=== PATIENT | female | born 1970 | race Caucasian/White ===

== ENCOUNTER 2019-09-10 18:28 | Emergency (ER) | payer SELFPAY ==
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
[2019-09-10] MEDS ORDERED: TYLENOL 325 MG PO STA (20:20)
[2019-09-10] MEDS ORDERED: TYLENOL 325 MG ONE (20:21)
[2019-09-10] MEDS ORDERED: NORCO 5/325 MG PO ONE (20:49)
[2019-09-10] MEDS ORDERED: NORCO 5/325 MG ONE (20:51)
[2019-09-10 21:05] VITALS: BP 112/67; PULSE 74; O2SAT 98
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
== END 2019-09-10 21:06 | disposition home or self-care (01) ==
LOC: ED 18:28
DX: T14.8XXA Other injury of unspecified body region, initial encounter (principal); M79.642 Pain in left hand; M25.50 Pain in unspecified joint; M25.532 Pain in left wrist; M54.6 Pain in thoracic spine; V59.40XA Driver of pick-up truck or van injured in collision with unspecified motor vehicles in traffic accident, initial encounter
CPT/HCPCS: 72072; 73110; 73130; 99284; L3908; A9270-GY

== ENCOUNTER 2020-10-03 22:41 | Emergency (ER) | payer OTHER ==
[2020-10-03] MEDS ORDERED: Pepcid 20 MG VIAL IV ONE ×2 (23:10→23:11)
[2020-10-03] MEDS ORDERED: BENADRYL 50 MG/ML IV ONE (23:10)
[2020-10-03] MEDS ORDERED: solu-MEDROL 125 MG, Sterile H2O 10 ml 2 ML IV ONE ×2 (23:10)
[2020-10-03] MEDS ORDERED: solu-MEDROL ONE (23:11)
[2020-10-03] MEDS ORDERED: BENADRYL 50 MG/ML ONE (23:11)
--- NOTE | 2020-10-04 00:14 | ERPHSYRPT ---
- History of Present Illness Time Seen by Provider: 10/03/20 22:50 Source: patient Exam Limitations: no limitations Patient Subjective Stated Complaint: pt states after drinking daily's [place] mama she began having ithcing in her throat and felling like her tongue was thihomero dc difficulty breathing or swallowing Triage Nursing Assessment: pt alert and oriented, answers questions approp. pt ambulatory with steady gait noted. respirations nonlabored with lungs cta. respirations nonlabored with lungs cta. Physician History: Patient is a 50-year-old white female who presents with an allergic reaction. She noted the onset of swelling of her tongue and difficulty breathing and hives when she was fdc done with a [employer] dicksona frozen cocktail. She did take 25 of Benadryl at home. She also reports that in the recent weeks she has had allergic reactions to other things like shrimp and gluten-containing foods. These are new to her. Timing/Duration: today Severity: moderate Modifying Factors: Improves With: eating Associated Symptoms: shortness of breath Allergies/Adverse Reactions: codeine Allergy (Severe, Verified 10/03/20 23:09) Difficulty Breathing morphine Allergy (Severe, Verified 10/03/20 23:09) Difficulty Breathing Penicillins Allergy (Intermediate, Verified 10/03/20 23:09) Sulfa (Sulfonamide Antibiotics) Allergy (Intermediate, Verified 10/03/20 23:09) Rash Hx Tetanus, Diphtheria Vaccination/Date Given: Yes Hx Influenza Vaccination/Date Given: Yes Hx Pneumococcal Vaccination/Date Given: No Immunizations Up to Date: Yes Travel Risk - International Travel Have you traveled outside of the country in past 3 weeks: No - Coronavirus Screening Are you exhibiting any of the following symptoms?: No Close contact with a COVID-19 positive Pt in past 14-21 Days: No - Vaccine Status Have you recieved a Covid-19 vaccination: Yes 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 Practice Manager: Azub[employer] - Vaccination Dates Date of 2cond Vaccination (if applicable): april 2020 - Review of Systems Constitutional: No Fever, No Chills Eyes: No Symptoms Ears, Nose, & Throat: No Symptoms, Mouth Swelling, Throat Swelling Respiratory: Wheezing, No Cough, No Dyspnea Cardiac: No Chest Pain, No Edema, No Syncope Abdominal/Gastrointestinal: No Abdominal Pain, No Nausea, No Vomiting, No Diarrhea Genitourinary Symptoms: No Dysuria Musculoskeletal: No Back Pain, No Neck Pain Skin: No Rash Neurological: No Dizziness, No Focal Weakness, No Sensory Changes Psychological: No Symptoms Endocrine: No Symptoms All Other Systems: Reviewed and Negative - Past Medical History Pertinent Past Medical History: Yes Neurological History: No Pertinent History ENT History: Glaucoma Cardiac History: No Pertinent History Respiratory History: No Pertinent History Endocrine Medical History: No Pertinent History Musculoskeletal History: No Pertinent History GI Medical History: Crohns Disease History: No Pertinent History Psycho-Social History: No Pertinent History Female Reproductive Disorders: No Pertinent History - Past Surgical History Past Surgical History: Yes Neuro Surgical History: No Pertinent History Cardiac: No Pertinent History Respiratory: No Pertinent History Gastrointestinal: Appendectomy, Cholecystectomy Genitourinary: No Pertinent History Musculoskeletal: No Pertinent History Female Surgical History: No Pertinent History Other Surgical History: uterine ablation, mult colon resection d/t crohns - Social History Smoking Status: Former smoker Exposure to second hand smoke: No Drug Use: none Patient Lives Alone: No - Female History Hx Last Menstrual Period: post - Nursing Vital Signs Nursing Vital Signs: Initial Vital Signs Temperature 97.3 F 10/03/20 22:55 Pulse Rate 89 10/03/20 22:55 Respiratory Rate 18 10/03/20 22:55 Blood Pressure 140/80 10/03/20 22:55 O2 Sat by Pulse Oximetry 97 10/03/20 22:55 Pain Scale Pain Intensity 0 - Physical Exam General Appearance: mild distress Eye Exam: PERRL/EOMI, eyes nml inspection Ears, Nose, Throat Exam: other (Appear slightly swollen oropharynx is actually clear) Neck Exam: normal inspection, non-tender, supple, full range of motion Respiratory Exam: airway intact, wheezing Cardiovascular Exam: regular rate/rhythm, normal heart sounds, normal peripheral pulses Gastrointestinal/Abdomen Exam: soft, normal bowel sounds, No tenderness, No mass Back Exam: normal inspection, normal range of motion, No CVA tenderness, No vertebral tenderness Extremity Exam: normal inspection, normal range of motion, pelvis stable Neurologic Exam: alert, oriented x 3, cooperative, normal mood/affect, nml cerebellar function, nml station & gait, sensation nml, No motor deficits Skin Exam: normal color, warm, dry, No rash Lymphatic Exam: No adenopathy SpO2 Interpretation: normal SpO2: 97 O2 Delivery: Room Air - Course Nursing assessment & vital signs reviewed: Yes Ordered Tests: Medication Summary Discontinued Medications Generic Name Dose Route Start Last Admin Trade Name Ivis PRMauricio Reason Stop Dose Admin Methylprednisolone Sodium 0 mg 10/03/20 23:10 10/03/20 23:18 Succinate 125 mg/ Sterile IV 10/03/20 23:11 125 mg Water 2 ml STAT ONE Administration Diphenhydramine HCl 25 mg 10/03/20 23:10 10/03/20 23:17 Benadryl 50 Mg/Ml IV 10/03/20 23:11 25 mg STAT ONE Administration Diphenhydramine HCl Confirm 10/03/20 23:11 Benadryl 50 Mg/Ml Administered 10/03/20 23:12 Dose 50 mg .ROUTE .STK-MED ONE Famotidine 20 mg 10/03/20 23:10 10/03/20 23:17 Pepcid 20 Mg Vial IV 10/03/20 23:11 20 mg STAT ONE Administration Famotidine Confirm 10/03/20 23:11 Pepcid 20 Mg Vial Administered 10/03/20 23:12 Dose 20 mg IV .STK-MED ONE Methylprednisolone Sodium Succinate Confirm 10/03/20 23:11 Solu-Medrol Administered 10/03/20 23:12 Dose 125 mg .ROUTE .STK-MED ONE - Progress Progress: improved - Departure Departure Disposition: Home Clinical Impression: Allergic reaction Condition: Stable Critical Care Time: No Referrals: DOCTOR,NO FAMILY [Primary Care Provider] - Instructions: Hives (DC) Prescriptions: Prednisone 10 mg [Deltasone 10 mg] 10 mg PO TID #12 tablet
[2020-10-04 00:23] VITALS: BP 130/72; PULSE 73; O2SAT 98
== END 2020-10-04 00:34 | disposition home or self-care (01) ==
LOC: ED 22:41
DX: T78.40XA Allergy, unspecified, initial encounter (principal)
CPT/HCPCS: 96374; 96375; 99283; J1200; J2930

== ENCOUNTER 2022-03-09 21:06 | Emergency (ER) | payer OTHER ==
--- NOTE | 2022-03-09 21:11 | ERPHSYRPT ---
- History of Present Illness Time Seen by Provider: 03/09/22 21:11 Source: patient Exam Limitations: no limitations Physician History: This is a 51-year-old white female patient of nurse practitioner Joshua who presents with what she feels is a medication reaction to topical conjugated estrogens. Patient placed the estrogen vaginally as prescribed at approximately 8 PM prior to arrival to the emergency department at 9:30 PM. She noticed tightening of the throat and some perioral numbness within 30 minutes of placement of this new medication for her. She did not sense any shortness of breath chest pain. She has not had any nausea vomiting or diarrhea symptoms. She did attempt to rinse the medication out and off of her but does not feel she had all of it removed. Patient did not take any medication prior to arrival. Patient had the sensation of a dry mouth Timing/Duration: today Severity: mild Possible Causes: medications Associated Symptoms: tingling (The oral and in her throat), No difficulty breathing, No rash Allergies/Adverse Reactions: codeine Allergy (Severe, Verified 10/03/20 23:09) Difficulty Breathing estrogens, conjugated [From Premarin] Allergy (Severe, Verified 03/09/22 21:24) Difficulty Swallowing morphine Allergy (Severe, Verified 10/03/20 23:09) Difficulty Breathing Penicillins Allergy (Intermediate, Verified 10/03/20 23:09) Sulfa (Sulfonamide Antibiotics) Allergy (Intermediate, Verified 10/03/20 23:09) Rash Home Medications: Adalimumab [Humira] 40 mg SQ UD 03/09/22 [History] Bimatoprost 0.01% [Lumigan 0.01% 2.5 ml] 2 drops HS 03/09/22 [History] Brimonidine Tartrate/Timolol [Combigan 0.2%-0.5% Eye Drops] 2 drops HS 03/09/22 [History] Cyanocobalamin (Vitamin B-12) [B-12] 1,000 mcg SQ UD 03/09/22 [History] Cyclobenzaprine HCl 10 mg [Cyclobenzaprine 10 MG] 10 mg PO TID PRN 03/09/22 [History] Potassium Chloride 20 meq PO DAILY PRN PRN 03/09/22 [History] Semaglutide [Ozempic] 1 mg SQ WEEKLY 03/09/22 [History] Hx Tetanus, Diphtheria Vaccination/Date Given: Yes Hx Influenza Vaccination/Date Given: Yes Hx Pneumococcal Vaccination/Date Given: No Travel Risk - International Travel Have you traveled outside of the country in past 3 weeks: No - Coronavirus Screening Are you exhibiting any of the following symptoms?: No Close contact with a COVID-19 positive Pt in past 14-21 Days: No - Vaccine Status Have you recieved a Covid-19 vaccination: Yes 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 Throat numbness) Respiratory: No Symptoms Cardiac: No Symptoms Abdominal/Gastrointestinal: No Symptoms Genitourinary Symptoms: No Symptoms Musculoskeletal: No Symptoms Skin: No Symptoms Neurological: No Symptoms Psychological: No Symptoms Endocrine: No Symptoms Hematologic/Lymphatic: No Symptoms Immunological/Allergic: No Symptoms All Other Systems: Reviewed and Negative - Past Medical History Pertinent Past Medical History: Yes Neurological History: No Pertinent History ENT History: Glaucoma Cardiac History: No Pertinent History Respiratory History: No Pertinent History Endocrine Medical History: No Pertinent History Musculoskeletal History: No Pertinent History GI Medical History: Crohns Disease History: No Pertinent History Psycho-Social History: No Pertinent History Female Reproductive Disorders: No Pertinent History - Past Surgical History Past Surgical History: Yes Neuro Surgical History: No Pertinent History Cardiac: No Pertinent History Respiratory: No Pertinent History Gastrointestinal: Appendectomy, Cholecystectomy Genitourinary: No Pertinent History Musculoskeletal: No Pertinent History Female Surgical History: No Pertinent History Other Surgical History: uterine ablation, mult colon resection d/t crohns - Social History Smoking Status: Former smoker Exposure to second hand smoke: No Drug Use: none Patient Lives Alone: No - Nursing Vital Signs Nursing Vital Signs: Initial Vital Signs Temperature 97.6 F 03/09/22 21:14 Pulse Rate 85 03/09/22 21:14 Respiratory Rate 17 03/09/22 21:14 Blood Pressure 132/87 03/09/22 21:14 O2 Sat by Pulse Oximetry 97 03/09/22 21:14 Pain Scale Pain Intensity 0 - Physical Exam General Appearance: no apparent distress, alert, anxiety Eye Exam: PERRL/EOMI, eyes nml inspection Ears, Nose, Throat Exam: dry mucous membranes Neck Exam: normal inspection, non-tender, supple, full range of motion Respiratory Exam: normal breath sounds, lungs clear, No chest tenderness, No respiratory distress, No wheezing, No stridor Cardiovascular Exam: regular rate/rhythm, normal heart sounds, normal peripheral pulses Gastrointestinal/Abdomen Exam: soft, normal bowel sounds, No tenderness Pelvic Exam: not done Rectal Exam: not done Back Exam: normal inspection, normal range of motion, No CVA tenderness, No vertebral tenderness Extremity Exam: normal inspection, normal range of motion, pelvis stable Neurologic Exam: alert, oriented x 3, cooperative, museum director II-XII nml as tested, normal mood/affect, nml cerebellar function, nml station & gait, sensation nml Skin Exam: normal color, warm, dry, No rash Lymphatic Exam: No adenopathy SpO2 Interpretation: normal O2 Delivery: Room Air - Course Nursing assessment & vital signs reviewed: Yes Ordered Tests: Medication Summary Discontinued Medications Generic Name Dose Route Start Last Admin Trade Name Jereq PRN Reason Stop Dose Admin Diphenhydramine HCl 50 mg 03/09/22 21:43 03/09/22 21:50 Diphenhydramine Hcl 25 Mg Capsule PO 03/09/22 21:44 50 mg STAT ONE Administration Diphenhydramine HCl Confirm 03/09/22 21:48 Diphenhydramine Hcl 25 Mg Capsule Administered 03/09/22 21:49 Dose 50 mg .ROUTE .STK-MED ONE Famotidine 40 mg 03/09/22 21:43 03/09/22 21:50 Famotidine 20 Mg Tablet PO 03/09/22 21:44 40 mg STAT ONE Administration Famotidine Confirm 03/09/22 21:47 Famotidine 20 Mg Tablet Administered 03/09/22 21:48 Dose 40 mg .ROUTE .STK-MED ONE Prednisone 20 mg 03/09/22 21:44 03/09/22 21:50 Prednisone 20 Mg Tablet PO 03/09/22 21:45 20 mg STAT ONE Administration Prednisone Confirm 03/09/22 21:48 Prednisone 20 Mg Tablet Administered 03/09/22 21:49 Dose 20 mg .ROUTE .STK-MED ONE - Progress Progress: improved Counseled pt/family regarding: diagnosis, need for follow-up, rad results - Departure Departure Disposition: Home Clinical Impression: Medication adverse effect Condition: Stable Critical Care Time: No Referrals: LINDA LEWIS NP [Primary Care Provider] - Follow up/PCP as directed Additional Instructions: Stop the new medication. Contact Jo [facility] nurse practitioner tomorrow morning to determine what new medication or new/different delivery system to provide the same medication for you. Take Benadryl 25 mg orally 3 times a day for the next 4 days. Take your other medications as prescribed. Prescriptions: Prednisone 10 mg [Deltasone 10 mg] 10 mg PO TID #12 tablet Famotidine 20 mg [Pepcid 20 MG] 20 mg PO DAILY #7 tablet
[2022-03-09] MEDS ORDERED: Pepcid 20 MG PO ONE (21:43)
[2022-03-09] MEDS ORDERED: BENADRYL 25 MG CAPSULE PO ONE (21:43)
[2022-03-09] MEDS ORDERED: DELTASONE 20 MG PO ONE (21:44)
[2022-03-09] MEDS ORDERED: Pepcid 20 MG ONE (21:47)
[2022-03-09] MEDS ORDERED: DELTASONE 20 MG ONE (21:48)
[2022-03-09] MEDS ORDERED: BENADRYL 25 MG CAPSULE ONE (21:48)
[2022-03-09 22:32] VITALS: BP 119/81; PULSE 72; O2SAT 98
== END 2022-03-09 22:43 | disposition home or self-care (01) ==
LOC: ED 21:06
DX: R13.10 Dysphagia, unspecified (principal); T38.5X5A Adverse effect of other estrogens and progestogens, initial encounter; R20.0 Anesthesia of skin; R68.2 Dry mouth, unspecified; Z79.85 Long-term (current) use of injectable non-insulin antidiabetic drugs; Z79.52 Long term (current) use of systemic steroids; Z79.899 Other long term (current) drug therapy
CPT/HCPCS: 99282; A9270-GY

== ENCOUNTER 2022-08-28 06:08 | Emergency (ER) | payer OTHER ==
--- NOTE | 2022-08-28 06:38 | ERPHSYRPT ---
- History of Present Illness Historian: patient, family Exam Limitations: no limitations Timing/Duration: today Activities at Onset: none Quality: cramping, sharpness, stabbing Abdominal Pain Onset Location: RUQ Pain Radiation: other (right to mid and left) Severity of Pain-Max: severe Severity of Pain-Current: severe Modifying Factors: Improves With: nothing Associated Symptoms: nausea Previous symptoms: recently treated, other (like prior crohns only more) Hx Tetanus, Diphtheria Vaccination/Date Given: Yes Hx Influenza Vaccination/Date Given: Yes Hx Pneumococcal Vaccination/Date Given: No <IVELISSE ARRIAZA - Last Filed: 08/28/22 06:44> <LAURA FLORES - Last Filed: 08/28/22 09:41> - History of Present Illness Time Seen by Provider: 08/28/22 06:33 Physician History: pt has a Hx of Crohns Dx with several previous resections now maintained on Humira, and feels this is an episode. She was scheduled for a CT with contrast tomorrow for a suspicious abd mass, but developed this pain today. No hx of trauma. She is allergic to morphine. Abd is tender at Right to mid with rebound. family serves as an independent source for the Hx. Discussed risks/benefits of testing including IV COntrast CT, CBC,CMP, Lactate, HCG, Lipase Amylase, UA, as well as Tx with IVF and droperidol for pain and pt wishes to proceed. Results later discussed. PMHx includes removal of GB and Appe , as well as recurring renal stones. (IVELISSE ARRIAZA) Allergies/Adverse Reactions: codeine Allergy (Severe, Verified 08/28/22 06:17) Difficulty Breathing estrogens, conjugated [From Premarin] Allergy (Severe, Verified 08/28/22 06:17) Difficulty Swallowing morphine Allergy (Severe, Verified 08/28/22 06:17) Difficulty Breathing Penicillins Allergy (Intermediate, Verified 08/28/22 06:17) Sulfa (Sulfonamide Antibiotics) Allergy (Intermediate, Verified 08/28/22 06:17) Rash coconut Allergy (Verified 08/28/22 06:17) Anaphylactic Reaction Home Medications: Adalimumab [Humira] 40 mg SQ UD 03/09/22 [History] Bimatoprost 0.01% [Lumigan 0.01% 2.5 ml] 2 drops HS 03/09/22 [History] Brimonidine Tartrate/Timolol [Combigan 0.2%-0.5% Eye Drops] 2 drops HS 03/09/22 [History] Cyanocobalamin (Vitamin B-12) [B-12] 1,000 mcg SQ UD 03/09/22 [History] Cyclobenzaprine HCl 10 mg [Cyclobenzaprine 10 MG] 10 mg PO TID PRN 3 [History] Potassium Chloride 20 meq PO DAILY PRN PRN 03/09/22 [History] Alprazolam [Xanax] 0.5 mg PO DAILY PRN 08/28/22 [History] Cholecalciferol (Vitamin D3) [Vitamin D] 2,000 unit PO DAILY 08/28/22 [History] Ergocalciferol (Vitamin D2) [Vitamin D2] 50,000 unit PO Q7D 08/28/22 [History] Travel Risk - Vaccine Status Have you recieved a Covid-19 vaccination: Yes 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[employer] 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[employer] - Vaccination Dates Date of 2cond Vaccination (if applicable): april 2020 <IVELISSE ARRIAZA - Last Filed: 08/28/22 06:44> - Review of Systems Constitutional: No Fever, No Chills Eyes: No Symptoms Ears, Nose, & Throat: No Symptoms Respiratory: No Cough, No Dyspnea Cardiac: No Chest Pain, No Edema, No Syncope Abdominal/Gastrointestinal: Abdominal Pain, Nausea, No Diarrhea Genitourinary Symptoms: No Dysuria Musculoskeletal: No Back Pain, No Neck Pain Skin: No Symptoms, No Rash Neurological: No Dizziness, No Focal Weakness, No Sensory Changes Psychological: No Symptoms Endocrine: No Symptoms Hematologic/Lymphatic: No Symptoms Immunological/Allergic: No Symptoms All Other Systems: Reviewed and Negative <IVELISSE ARRIAZA - Last Filed: 08/28/22 06:44> - Past Medical History Pertinent Past Medical History: Yes Neurological History: No Pertinent History ENT History: Glaucoma Cardiac History: No Pertinent History Respiratory History: No Pertinent History Endocrine Medical History: No Pertinent History Musculoskeletal History: No Pertinent History GI Medical History: Crohns Disease History: No Pertinent History Psycho-Social History: No Pertinent History Female Reproductive Disorders: No Pertinent History - Past Surgical History Past Surgical History: Yes Neuro Surgical History: No Pertinent History Cardiac: No Pertinent History Respiratory: No Pertinent History Gastrointestinal: Appendectomy, Cholecystectomy Genitourinary: No Pertinent History Musculoskeletal: No Pertinent History Female Surgical History: No Pertinent History Other Surgical History: uterine ablation, mult colon resection d/t crohns - Social History Smoking Status: Former smoker Exposure to second hand smoke: No Drug Use: none Patient Lives Alone: No <IVELISSE ARRIAZA - Last Filed: 08/28/22 06:44> - Physical Exam General Appearance: moderate distress, alert Eye Exam: PERRL/EOMI, eyes nml inspection Ears, Nose, Throat Exam: normal ENT inspection, pharynx normal, moist mucous membranes Neck Exam: normal inspection, non-tender, supple, full range of motion Respiratory Exam: normal breath sounds, lungs clear, No respiratory distress Cardiovascular Exam: regular rate/rhythm, normal heart sounds Gastrointestinal/Abdomen Exam: soft, tenderness, guarding, rebound Pelvic Exam: deferred Rectal Exam: deferred Back Exam: normal inspection, normal range of motion, No CVA tenderness, No vertebral tenderness Extremity Exam: normal inspection, normal range of motion, pelvis stable Neurologic Exam: alert, oriented x 3, cooperative, normal mood/affect, nml cerebellar function, sensation nml, No motor deficits Skin Exam: normal color, warm, dry SpO2 Interpretation: normal SpO2: 96 O2 Delivery: Room Air <APPLE ARRIAZAH MICHELLE - Last Filed: 08/28/22 06:44> - Nursing Vital Signs Nursing Vital Signs: Initial Vital Signs Pulse Rate 71 08/28/22 06:18 Blood Pressure 179/84 08/28/22 06:18 O2 Sat by Pulse Oximetry 95 08/28/22 06:18 Pain Scale Pain Intensity 10 - Course Nursing assessment & vital signs reviewed: Yes <APPLE ARRIAZAH MICHELLE - Last Filed: 08/28/22 06:44> - CT Exams Abdomen/Pelvis CT Interpretation: Tele-radiologist Report, Other (terminal ileum shows thick en hancing vargas with surrounding fat stranding and minimal free fluid. There is an associated stricture and upstream small bowel dilation concerning for active Crohn's disease. Patient also has bilateral nonobstructing renal calculi.) <LAURA FLORES - Last Filed: 08/28/22 09:41> Ordered Tests: Active Orders 24 hr Category Date Time Status IV Insertion STAT Care 08/28/22 06:44 Active ABDOMEN AND PELVIS W CONTRAST [CT] Stat Exams 08/28/22 06:44 Completed AMYLASE Stat Lab 08/28/22 06:40 Completed CBC W DIFF Stat Lab 08/28/22 06:40 Completed CMP Stat Lab 08/28/22 06:40 Completed HCG QUALITATIVE, SERUM Stat Lab 08/28/22 06:40 Completed LIPASE Stat Lab 08/28/22 06:40 Completed Lactic Acid Stat Lab 08/28/22 06:44 Completed UA W/RFX UR CULTURE Stat Lab 08/28/22 06:50 Ordered Medication Summary Discontinued Medications Generic Name Dose Route Start Last Admin Trade Name Freq PRN Reason Stop Dose Admin Methylprednisolone Sodium 0 mg 08/28/22 07:34 08/28/22 07:38 Succinate 125 mg/ Sterile IV 08/28/22 07:35 125 mg Water 2 ml STAT ONE Administration Droperidol 1.25 mg 08/28/22 06:44 08/28/22 07:00 Droperidol 5 Mg/2 Ml Vial IV 08/28/22 06:45 1.25 mg STAT ONE Administration Droperidol Confirm 08/28/22 06:53 Droperidol 5 Mg/2 Ml Vial Administered 08/28/22 06:54 Dose 5 mg .ROUTE .STK-MED ONE Famotidine 20 mg 08/28/22 06:44 08/28/22 06:59 Famotidine 20 Mg/1 Vial IV 08/28/22 06:45 20 mg STAT ONE Administration Famotidine Confirm 08/28/22 06:53 Famotidine 20 Mg/1 Vial Administered 08/28/22 06:54 Dose 20 mg IV .STK-MED ONE Hydromorphone HCl 0.5 mg 08/28/22 07:33 08/28/22 07:42 Hydromorphone 1 Mg/1ml Inj IV 08/28/22 07:34 0.5 mg STAT ONE Administration Hydromorphone HCl Confirm 08/28/22 07:36 Hydromorphone 1 Mg/1ml Inj Administered 08/28/22 07:37 Dose 1 mg .ROUTE .STK-MED ONE Sodium Chloride 1,000 mls @ 999 mls/hr 08/28/22 06:44 08/28/22 08:06 Sodium Chloride 0.9% 1000 Ml IV 08/28/22 07:44 Infused .Q1H1M STA Infusion Sodium Chloride Confirm 08/28/22 06:54 Sodium Chloride 0.9% 1000 Ml Administered 08/28/22 06:55 Dose 1,000 mls @ ud .ROUTE .STK-MED ONE Methylprednisolone Sodium Succinate Confirm 08/28/22 07:36 Methylprednis Sod Succ 125 Mg/2 Ml Vial Administered 08/28/22 07:37 Dose 125 mg .ROUTE .STK-MED ONE Ondansetron HCl 4 mg 08/28/22 06:44 08/28/22 06:57 Ondansetron Hcl 4 Mg/2 Ml Vial IV 08/28/22 06:45 4 mg STAT ONE Administration Ondansetron HCl Confirm 08/28/22 06:53 Ondansetron Hcl 4 Mg/2 Ml Vial Administered 08/28/22 06:54 Dose 4 mg .ROUTE .STK-MED ONE Pantoprazole Sodium 40 mg 08/28/22 06:44 08/28/22 07:00 Pantoprazole 40 Mg Vial IV 08/28/22 06:45 40 mg STAT ONE Administration Pantoprazole Sodium Confirm 08/28/22 06:54 Pantoprazole 40 Mg Vial Administered 08/28/22 06:55 Dose 40 mg IV .STK-MED ONE Sterile Water Confirm 08/28/22 07:36 Water For Injection,Sterile 10 Ml Vial Administered 08/28/22 07:37 Dose 10 ml IJ .STK-MED ONE Lab/Rad Data: Laboratory Result Diagrams 08/28/22 06:40 08/28/22 06:40 Laboratory Results 08/28/22 08/28/22 08/28/22 Range/Units 06:44 06:40 06:40 WBC (4.0-10.5) x10^3/uL RBC (4.1-5.4) x10^6/uL Hgb (12.0-16.0) g/dL Hct (35-47) % MCV (78-100) fL MCH (26-32) pg MCHC (32-36) g/dL RDW (11.5-14.0) % Plt Count (150-450) x10^3/uL MPV (7.5-11.0) fL Gran % (36.0-66.0) % Immature Gran % (Auto) (0.00-0.4) % Nucleat RBC Rel Count (0.00-0.1) % Eos # (Auto) (0-0.5) x10^3/uL Immature Gran # (Auto) (0.00-0.03) x10^3u/L Absolute Lymphs (auto) (1.0-4.6) x10^3/uL Absolute Monos (auto) (0.0-1.3) x10^3/uL Absolute Nucleated RBC (0.00-0.01) x10^3u/L Lymphocytes % (24.0-44.0) % Monocytes % (0.0-12.0) % Eosinophils % (0.00-5.0) % Basophils % (0.0-0.4) % Absolute Granulocytes (1.4-6.9) x10^3/uL Basophils # (0-0.4) x10^3/uL Sodium 140 (137-145) mmol/L Potassium 3.1 L (3.5-5.1) mmol/L Chloride 107 (98-107) mmol/L Carbon Dioxide 26 (22-30) mmol/L Anion Gap 10.0 (5-15) MEQ/L BUN 16 (7-17) mg/dL Creatinine 0.64 (0.52-1.04) mg/dL Estimated GFR > 60.0 ML/MIN Glucose 99 (74-106) mg/dL Lactic Acid 1.1 (0.4-2.0) Calcium 8.7 (8.4-10.2) mg/dL Total Bilirubin 0.90 (0.2-1.3) mg/dL AST 21 (14-36) U/L ALT 27 (0-35) U/L Alkaline Phosphatase 68 (38-126) U/L Serum Total Protein 7.2 (6.3-8.2) g/dL Albumin 3.7 (3.5-5.0) g/dL Amylase 67 (30-110) U/L Lipase 92 (23-300) U/L Serum HCG, Qual NEGATIVE (NEGATIVE) 08/28/22 Range/Units 06:40 WBC 9.4 (4.0-10.5) x10^3/uL RBC 4.48 (4.1-5.4) x10^6/uL Hgb 12.9 (12.0-16.0) g/dL Hct 38.3 (35-47) % MCV 85.5 (78-100) fL MCH 28.8 (26-32) pg MCHC 33.7 (32-36) g/dL RDW 13.0 (11.5-14.0) % Plt Count 248 (150-450) x10^3/uL MPV 8.9 (7.5-11.0) fL Gran % 69.9 H (36.0-66.0) % Immature Gran % (Auto) 0.3 (0.00-0.4) % Nucleat RBC Rel Count 0.0 (0.00-0.1) % Eos # (Auto) 0.05 (0-0.5) x10^3/uL Immature Gran # (Auto) 0.03 (0.00-0.03) x10^3u/L Absolute Lymphs (auto) 2.02 (1.0-4.6) x10^3/uL Absolute Monos (auto) 0.71 (0.0-1.3) x10^3/uL Absolute Nucleated RBC 0.00 (0.00-0.01) x10^3u/L Lymphocytes % 21.5 L (24.0-44.0) % Monocytes % 7.5 (0.0-12.0) % Eosinophils % 0.5 (0.00-5.0) % Basophils % 0.3 (0.0-0.4) % Absolute Granulocytes 6.57 (1.4-6.9) x10^3/uL Basophils # 0.03 (0-0.4) x10^3/uL Sodium (137-145) mmol/L Potassium (3.5-5.1) mmol/L Chloride (98-107) mmol/L Carbon Dioxide (22-30) mmol/L Anion Gap (5-15) MEQ/L BUN (7-17) mg/dL Creatinine (0.52-1.04) mg/dL Estimated GFR ML/MIN Glucose (74-106) mg/dL Lactic Acid (0.4-2.0) Calcium (8.4-10.2) mg/dL Total Bilirubin (0.2-1.3) mg/dL AST (14-36) U/L ALT (0-35) U/L Alkaline Phosphatase (38-126) U/L Serum Total Protein (6.3-8.2) g/dL Albumin (3.5-5.0) g/dL Amylase (30-110) U/L Lipase (23-300) U/L Serum HCG, Qual (NEGATIVE) - Progress Progress: improved, re-examined Counseled pt/family regarding: lab results, diagnosis, need for follow-up, rad results <IVELISSE ARRIAZA - Last Filed: 08/28/22 06:44> <LAURA FLORES - Last Filed: 08/28/22 09:41> - Progress Progress Note: 08/28/22 06:[address] Flores at change of shift after introduction, discussion of pending tests , for final interpretation, Tx, and disposition. (IVELISSE ARRIAZA) Nursing staff reported patient was still in pain after initial medications were given so I reevaluated the patient. Still complaining of lower abdominal pain, abdominal exam remains within normal limits without guarding, rigidity or rebound tenderness. Patient has an allergy to morphine, but has not tried any other narcotic pain medications in the past and is agreeable to trying Dilaudid at this time. I will also give 125 mg of IV Solu-Medrol for this likely Crohn's flare. CT results are still pending at this time. 08/28/22 07:35 08/28/22 09:37 CT scan showed distal ileum with thick enhancing vargas and surrounding fat stranding with minimal free fluid. There was also an associated stricture with upstream small bowel dilation concerning for active Crohn's disease. Patient also had bilateral nonobstructing renal calculi. I went to discuss results with the patient and she reported feeling significantly improved after the steroids and Dilaudid. I gave the option of admission to patient for pain control bowel rest and steroids, but patient would like to attempt to manage this on an outpatient basis and follow-up with her skilled helper on Monday. I am agreeable to this plan due to patient's improved pain, lack of fever, recent bowel movements. I advised patient to have a liquid diet for the next few days and follow-up with her GI on Monday. If her pain worsens, fever develops or becomes constipated please immediately return to the emergency room for further treatment and evaluation. (LAURA FLORES) Medical Desision Making - Independent Historian Additional History obtained from: Family - Diagnostic Testing Diagnostic test were ordered, analyzed, and reviewed by me: Yes Radiological Interpretation: Teleradiologist Report - Risk of complications The pt has a mod risk of morbidity or mortality based on: Need for prescription drug management The pt has a high risk of morbidity or mortality based on: Decision regarding hospitilization or escalation of hosp level of care <IVELISSE ARRIAZA - Last Filed: 08/28/22 06:44> - Departure Critical Care Time: No <IVELISSE ARRIAZA - Last Filed: 08/28/22 06:44> - Departure Departure Disposition: Home <LAURA FLORES - Last Filed: 08/28/22 09:41> - Departure Clinical Impression: Crohn's disease involving terminal ileum Condition: Good Referrals: LINDA VELASQUEZ NP [Primary Care Provider] - Follow up/PCP as directed Instructions: Crohn's Disease (DC) Prescriptions: Hydrocodone/Acetaminophen [Hydrocodone-Acetamin 5-325 mg] 1 tab PO Q4HPRN PRN 5 Days #30 tablet MDD 6 PRN Reason: Pain Ciprofloxacin HCl [Cipro] 500 mg PO BID 10 Days tablet Metronidazole 500 mg [Flagyl 500 MG] 500 mg PO TID 10 Days tablet predniSONE [Prednisone] 10 mg PO DAILY #45 tablet
[2022-08-28] MEDS ORDERED: Sodium Chloride 0.9% 1000 ML 1,000 ML IV STA (06:44)
[2022-08-28] MEDS ORDERED: PROTONIX 40 MG IV IV ONE ×2 (06:44→06:54)
[2022-08-28] MEDS ORDERED: Pepcid 20 MG VIAL IV ONE ×2 (06:44→06:53)
[2022-08-28] MEDS ORDERED: Zofran 4 MG/2 ML VIAL IV ONE (06:44)
[2022-08-28] MEDS ORDERED: Zofran 4 MG/2 ML VIAL ONE (06:53)
[2022-08-28] MEDS ORDERED: Sodium Chloride 0.9% 1000 ML 1,000 ML ONE (06:54)
[2022-08-28 07:06] LABS: Absolute Neutrophil Ct (ANC) 6.57 x10^3/uL (1.4-6.9); BASOPHIL % 0.3 % (0.0-0.4); Basophil (Absolute #) 0.03 x10^3/uL (0-0.4); Eosinophil % 0.5 % (0.00-5.0); Eosinophil (Absolute #) 0.05 x10^3/uL (0-0.5); Hematocrit 38.3 % (35-47); Hemoglobin 12.9 g/dL (12.0-16.0); IMMATURE GRAN # 0.03 x10^3u/L (0.00-0.03); IMMATURE GRAN % 0.3 % (0.00-0.4); Lymphocyte (Absolute #) 2.02 x10^3/uL (1.0-4.6); Lymphocytes % 21.5 % (24.0-44.0); Mean Cell Volume 85.5 fL (78-100); Mean Corpuscular Hemoglobin 28.8 pg (26-32); Mean Corpuscular Hgb Concent. 33.7 g/dL (32-36); Mean Platelet Volume 8.9 fL (7.5-11.0); Monocyte (Absolute #) 0.71 x10^3/uL (0.0-1.3); Monocytes % 7.5 % (0.0-12.0); Neutrophil % 69.9 % (36.0-66.0); Platelet Count 248 x10^3/uL (150-450); Red Blood Count 4.48 x10^6/uL (4.1-5.4); White Blood Count 9.4 x10^3/uL (4.0-10.5)
[2022-08-28 07:31] LABS: HCG SERUM TEST NEGATIVE (NEGATIVE)
[2022-08-28 07:33] LABS: ALBUMIN 3.7 g/dL (3.5-5.0); ALKALINE PHOSPHATASE 68 U/L (38-126); AMYLASE 67 U/L (30-110); BLOOD UREA NITROGEN 16 mg/dL (7-17); CHLORIDE 107 mmol/L (98-107); Calcium 8.7 mg/dL (8.4-10.2); Carbon Dioxide 26 mmol/L (22-30); Creatinine 1 0.64 mg/dL (0.52-1.04); EST GLOMERULAR FILTRATION RATE > 60.0 ML/MIN; Glucose 99 mg/dL (74-106); LIPASE 92 U/L (23-300); Potassium 3.1 mmol/L (3.5-5.1); SGOT/AST 21 U/L (14-36); SGPT/ALT 27 U/L (0-35); SODIUM 140 mmol/L (137-145); Total Protein 7.2 g/dL (6.3-8.2)
[2022-08-28] MEDS ORDERED: Hydromorphone 1 mg/ml Injection IV ONE ×2 (07:33→10:02)
[2022-08-28] MEDS ORDERED: solu-MEDROL 125 MG, Sterile H2O 10 ml 2 ML IV ONE ×2 (07:34)
[2022-08-28] MEDS ORDERED: solu-MEDROL ONE (07:36)
[2022-08-28] MEDS ORDERED: Sterile H2O 10 ml IJ ONE (07:36)
[2022-08-28] MEDS ORDERED: Hydromorphone 1 mg/ml Injection ONE ×2 (07:36→10:04)
[2022-08-28 07:46] VITALS: PULSE 58
--- NOTE | 2022-08-28 09:15 | XRAY ---
CLINICAL HISTORY:Abdominal pain with history of Crohn's disease. History of mass; COMPARISON:None; TECHNIQUES:CT scan of the abdomen and pelvis was performed with IV contrast. Coronal and sagittal reconstructive images were also obtained; FINDINGS: The distal ileum appears dilated, elongated filled with fluid, shows thick enhancing vargas and surrounded by fat stranding and minimal related free fluid. The region of terminal ileal involvement measures about 10 cm. There is associated upstream dilatation of small bowel, which is measuring 4m in caliber. Colon is normal in caliber. No evidence of free air or collection/abscess is noted. The liver is of average size. No focal or diffuse parenchymal abnormality. The portal vein, intrahepatic biliary radicals, and the bile ducts are normal. The spleen, pancreas, and adrenal glands are unremarkable. The kidneys are unremarkable. They are normal in size and shape. No hydronephrosis. Multiple non-obstructive calculi are seen at upper, mid and lower left calyces. Small non-obstructive calculus is seen at lower pole of right kidney. The gallbladder is removed with clear operative bed. The ascending colon, the transverse colon, the descending colon are unremarkable. There is no evidence of significant enlargement of the mesenteric or retroperitoneal lymph nodes. The urinary bladder is unremarkable. The rectosigmoid colon is unremarkable. The uterus and ovaries are seen within normal limits. The pelvic vasculature is unremarkable. No evidence of pelvic lymphadenopathy. Bilateral pelvic small phleboli nited. No definite abnormalities of the scanned spine. Lung bases are clear. IMPRESSION: 1. The distal ileum shows thick enhancing vargas and surrounded by fat stranding and minimal related free fluid, with associated stricture and upstream small bowel dilatation - likely representing active Crohn's disease for clinical correlation. 2. Non-obstructive bilateral renal calculi. Electronically Signed by: Nahid Lubin MD. (08/28/2022 08:11:47 [employer])
[2022-08-28 10:27] LABS: Appearance Clear (Clear); Bacteria Rare /HPF (None Seen); Bilirubin Negative (Negative); Blood Negative (Negative); Epithelial Cells Moderate /HPF (None Seen); Glucose, Urine Negative (Negative); Hyaline Casts NONE SEEN /LPF (0-2); Ketones Negative (Negative); Leukocyte Esterase Negative (Negative); Nitrite Negative (Negative); Ph 5.5 (4.6-8.0); Protein,Urine Dip Negative (Negative); RBC 0-2 /HPF (0-5); Urobilinogen 0.2 mg/dL (0.2); WBC 0-2 /HPF (0-5)
[2022-08-28 10:28] LABS: ADD URINE CULTURE? NO (NO)
[2022-08-28 11:16] VITALS: BP 96/49; O2SAT 92
== END 2022-08-28 11:17 | disposition home or self-care (01) ==
LOC: ED 06:08
DX: K50.00 Crohn's disease of small intestine without complications (principal); Z79.891 Long term (current) use of opiate analgesic; Z79.52 Long term (current) use of systemic steroids; Z79.899 Other long term (current) drug therapy
CPT/HCPCS: 36000; 36415; 74177; 80053; 81001; 82150; 83605; 83690; 84703; 85025; 96374; 96375; 96376; 99284; J1170; J2405; J2930

== ENCOUNTER 2023-04-28 07:04 | Emergency (ER) | payer OTHER ==
--- NOTE | 2023-04-28 07:29 | ERPHSYRPT ---
- History of Present Illness Time Seen by Provider: 04/28/23 07:25 Historian: patient Exam Limitations: no limitations Physician History: This is a 52-year-old white female patient of nurse practitioner Joshua and press shop supervisor Dr. Gonzalez who presents with epigastric and periumbilical abdominal pain described as localized burning. Patient has a history of gastroesophageal reflux disease, Crohn's disease and anxiety. Patient has chronic intermittent diarrhea secondary to Crohn's disease. She has had multiple bowel resections in the past. She has had an appendectomy and cholecystectomy. Last evening, the patient ate tacos. Early this morning she began having the above-stated complaint of abdominal pain. At 2:30 in the morning she took her Prilosec medication. Patient has pain and nausea. She has not had any vomiting. She denies chest pain. She denies shortness of breath. Patient states that she cannot take codeine and morphine. However she has had Dilaudid in the past which, to her recollection she does not have an allergy to but she thinks it made her heart rate slow a bit. Timing/Duration: yesterday Quality: burning Abdominal Pain Onset Location: epigastric, periumbilical Pain Radiation: no radiation Severity of Pain-Max: moderate Severity of Pain-Current: moderate Modifying Factors: Improves With: nothing Associated Symptoms: diarrhea, nausea, No chest pain, No fever/chills, No headache, No shortness of breath, No vomiting Previous symptoms: same symptoms as today (In the past), no recent treatment Allergies/Adverse Reactions: codeine Allergy (Severe, Verified 04/28/23 07:12) Difficulty Breathing estrogens, conjugated [From Premarin] Allergy (Severe, Verified 04/28/23 07:12) Difficulty Swallowing morphine Allergy (Severe, Verified 04/28/23 07:12) Difficulty Breathing Penicillins Allergy (Intermediate, Verified 04/28/23 07:12) Sulfa (Sulfonamide Antibiotics) Allergy (Intermediate, Verified 04/28/23 07:12) Rash coconut Allergy (Verified 04/28/23 07:12) Anaphylactic Reaction Home Medications: Adalimumab [Humira] 40 mg SQ UD 03/09/22 [History] Bimatoprost 0.01% [Lumigan 0.01% 2.5 ml] 2 drops .ROUTE DAILY 03/09/22 [History] Brimonidine Tartrate/Timolol [Combigan 0.2%-0.5% Eye Drops] 2 drops .ROUTE BID 03/09/22 [History] Cyanocobalamin (Vitamin B-12) [B-12] 1,000 mcg SQ UD 03/09/22 [History] Cyclobenzaprine HCl 10 mg [Cyclobenzaprine 10 MG] 10 mg PO TID PRN 03/09/22 [History] Potassium Chloride 20 meq PO DAILY PRN PRN 03/09/22 [History] Alprazolam [Xanax] 0.5 mg PO DAILY PRN 08/28/22 [History] Cholecalciferol (Vitamin D3) [Vitamin D] 2,000 unit PO DAILY 08/28/22 [History] Ergocalciferol (Vitamin D2) [Vitamin D2] 50,000 unit PO Q7D 08/28/22 [History] Calcium Carbonate [Calcium] 1 tab PO DAILY 04/28/23 [History] Famotidine 20 mg [Pepcid 20 MG] 20 mg PO DAILY PRN 04/28/23 [History] Omeprazole Magnesium [Prilosec Otc] 40 mg PO DAILY 04/28/23 [History] Hx Tetanus, Diphtheria Vaccination/Date Given: Yes Hx Influenza Vaccination/Date Given: Yes Hx Pneumococcal Vaccination/Date Given: No Travel Risk - International Travel Have you traveled outside of the country in past 3 weeks: No - Coronavirus Screening Are you exhibiting any of the following symptoms?: No Close contact with a COVID-19 positive Pt in past 14-21 Days: No - Vaccine Status Have you recieved a Covid-19 vaccination: Yes 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: [employer] - Vaccination Dates Date of 2cond Vaccination (if applicable): april 2020 - Review of Systems Constitutional: No Symptoms Eyes: No Symptoms Ears, Nose, & Throat: No Symptoms Respiratory: No Symptoms Cardiac: No Symptoms Abdominal/Gastrointestinal: Abdominal Pain, Nausea, Diarrhea, Appetite Changes, No Vomiting Genitourinary Symptoms: No Symptoms Musculoskeletal: No Symptoms Skin: No Symptoms Neurological: No Symptoms Psychological: No Symptoms Endocrine: No Symptoms Hematologic/Lymphatic: No Symptoms Immunological/Allergic: No Symptoms All Other Systems: Reviewed and Negative - Past Medical History Pertinent Past Medical History: Yes Neurological History: No Pertinent History ENT History: Glaucoma Cardiac History: No Pertinent History Respiratory History: No Pertinent History Endocrine Medical History: No Pertinent History Musculoskeletal History: No Pertinent History GI Medical History: Crohns Disease History: No Pertinent History Psycho-Social History: No Pertinent History Female Reproductive Disorders: No Pertinent History - Past Surgical History Past Surgical History: Yes Neuro Surgical History: No Pertinent History Cardiac: No Pertinent History Respiratory: No Pertinent History Gastrointestinal: Appendectomy, Cholecystectomy Genitourinary: No Pertinent History Musculoskeletal: No Pertinent History Female Surgical History: No Pertinent History Other Surgical History: uterine ablation, mult colon resection d/t crohns - Social History Smoking Status: Former smoker Exposure to second hand smoke: No Drug Use: none Patient Lives Alone: No - Nursing Vital Signs Nursing Vital Signs: Initial Vital Signs Temperature 98.9 F 04/28/23 07:15 Pulse Rate 69 04/28/23 07:15 Respiratory Rate 20 04/28/23 07:15 Blood Pressure 139/84 04/28/23 07:15 O2 Sat by Pulse Oximetry 97 04/28/23 07:15 Pain Scale Pain Intensity 10 - Physical Exam General Appearance: no apparent distress, alert, anxiety Eye Exam: PERRL/EOMI, eyes nml inspection Ears, Nose, Throat Exam: normal ENT inspection, moist mucous membranes Neck Exam: normal inspection, non-tender, supple, full range of motion Respiratory Exam: normal breath sounds, lungs clear, airway intact, No chest t enderness, No respiratory distress Cardiovascular Exam: regular rate/rhythm, normal heart sounds, normal peripheral pulses Gastrointestinal/Abdomen Exam: soft, normal bowel sounds, tenderness (Epigastric and periumbilical region), guarding (Epigastric and periumbilical region to palpation), other (Active bowel sounds), No rebound Pelvic Exam: not done Rectal Exam: not done Back Exam: normal inspection, normal range of motion, No CVA tenderness, No vertebral tenderness Extremity Exam: normal inspection, normal range of motion, pelvis stable Neurologic Exam: alert, oriented x 3, cooperative, oven tender II-XII nml as tested, no rmal mood/affect, nml cerebellar function, nml station & gait, sensation nml Skin Exam: normal color, warm, dry Lymphatic Exam: No adenopathy SpO2 Interpretation: normal O2 Delivery: Room Air - Course Nursing assessment & vital signs reviewed: Yes Ordered Tests: Active Orders 24 hr Category Date Time Status IV Insertion STAT Care 04/28/23 07:40 Active ABDOMEN AND PELVIS W/0 CONTRAS [CT] Stat Exams 04/28/23 07:40 Completed AMYLASE Stat Lab 04/28/23 07:45 Completed CBC W DIFF Stat Lab 04/28/23 07:45 Completed CMP Stat Lab 04/28/23 07:45 Completed ESR [Erythrocyte Sedimentation Rate] Stat Lab 04/28/23 07:43 Completed LIPASE Stat Lab 04/28/23 07:45 Completed UA W/RFX UR CULTURE Stat Lab 04/28/23 07:43 Completed Medication Summary Discontinued Medications Generic Name Dose Route Start Last Admin Trade Name Freq PRN Reason Stop Dose Admin Methylprednisolone Sodium 0 mg 04/28/23 08:53 Succinate 125 mg/ Sterile IV 04/28/23 08:54 Water 2 ml STAT ONE Hydromorphone HCl 0.5 mg 04/28/23 07:40 04/28/23 07:49 Hydromorphone 1 Mg/1ml Inj IV 04/28/23 07:41 0.5 mg STAT ONE Administration Hydromorphone HCl Confirm 04/28/23 07:46 Hydromorphone 1 Mg/1ml Inj Administered 04/28/23 07:47 Dose 1 mg .ROUTE .STK-MED ONE Sodium Chloride 1,000 mls @ 999 mls/hr 04/28/23 07:40 04/28/23 07:49 Sodium Chloride 0.9% 1000 Ml IV 04/28/23 08:40 999 mls/hr .Q1H1M STA Administration Sodium Chloride Confirm 04/28/23 07:46 Sodium Chloride 0.9% 1000 Ml Administered 04/28/23 07:47 Dose 1,000 mls @ ud .ROUTE .STK-MED ONE Ondansetron HCl 4 mg 04/28/23 07:40 04/28/23 07:48 Ondansetron Hcl 4 Mg/2 Ml Vial IV 04/28/23 07:41 4 mg STAT ONE Administration Ondansetron HCl Confirm 04/28/23 07:46 Ondansetron Hcl 4 Mg/2 Ml Vial Administered 04/28/23 07:47 Dose 4 mg .ROUTE .STK-MED ONE Lab/Rad Data: Laboratory Result Diagrams 04/28/23 07:45 04/28/23 07:45 Laboratory Results 04/28/23 04/28/23 04/28/23 Range/Units 07:45 07:45 07:43 WBC 11.0 H (4.0-10.5) x10^3/uL RBC 4.80 (4.1-5.4) x10^6/uL Hgb 13.6 (12.0-16.0) g/dL Hct 40.8 (35-47) % MCV 85.0 (78-100) fL MCH 28.3 (26-32) pg MCHC 33.3 (32-36) g/dL RDW 12.4 (11.5-14.0) % Plt Count 274 (150-450) x10^3/uL MPV 8.7 (7.5-11.0) fL Gran % 77.9 H (36.0-66.0) % Immature Gran % (Auto) 0.4 (0.00-0.4) % Nucleat RBC Rel Count 0.0 (0.00-0.1) % Eos # (Auto) 0.11 (0-0.5) x10^3/uL Immature Gran # (Auto) 0.04 H (0.00-0.03) x10^3u/L Absolute Lymphs (auto) 1.68 (1.0-4.6) x10^3/uL Absolute Monos (auto) 0.56 (0.0-1.3) x10^3/uL Absolute Nucleated RBC 0.00 (0.00-0.01) x10^3u/L Lymphocytes % 15.2 L (24.0-44.0) % Monocytes % 5.1 (0.0-12.0) % Eosinophils % 1.0 (0.00-5.0) % Basophils % 0.4 (0.0-0.4) % Absolute Granulocytes 8.60 H (1.4-6.9) x10^3/uL Basophils # 0.04 (0-0.4) x10^3/uL ESR 7 (0-20) mm/hr Sodium 140 (137-145) mmol/L Potassium 3.8 (3.5-5.1) mmol/L Chloride 106 (98-107) mmol/L Carbon Dioxide 25 (22-30) mmol/L Anion Gap 12.1 (5-15) MEQ/L BUN 14 (7-17) mg/dL Creatinine 0.68 (0.52-1.04) mg/dL Estimated GFR 104.7 ML/MIN Glucose 114 H (74-106) mg/dL Calcium 9.0 (8.4-10.2) mg/dL Total Bilirubin 1.10 (0.2-1.3) mg/dL AST 21 (14-36) U/L ALT 16 (0-35) U/L Alkaline Phosphatase 70 (38-126) U/L Serum Total Protein 7.5 (6.3-8.2) g/dL Albumin 4.3 (3.5-5.0) g/dL Amylase 67 (30-110) U/L Lipase 60 (23-300) U/L Urine Color (Yellow) Urine Appearance (Clear) Urine pH (4.6-8.0) Ur Specific [place] (1.005-1.030) Urine Protein (Negative) Urine Glucose (UA) (Negative) mg/dL Urine Ketones (Negative) Urine Blood (Negative) Urine Nitrite (Negative) Urine Bilirubin (Negative) Urine Urobilinogen (0.2) mg/dL Ur Leukocyte Esterase (Negative) U Hyaline Cast (Auto) (0-2) /LPF Urine Microscopic RBC (0-5) /HPF Urine Microscopic WBC (0-5) /HPF Ur Epithelial Cells (None Seen) /HPF Urine Bacteria (None Seen) /HPF Urine Culture Reflexed (NO) 04/28/23 Range/Units 07:43 WBC (4.0-10.5) x10^3/uL RBC (4.1-5.4) x10^6/uL Hgb (12.0-16.0) g/dL Hct (35-47) % MCV (78-100) fL MCH (26-32) pg MCHC (32-36) g/dL RDW (11.5-14.0) % Plt Count (150-450) x10^3/uL MPV (7.5-11.0) fL Gran % (36.0-66.0) % Immature Gran % (Auto) (0.00-0.4) % Nucleat RBC Rel Count (0.00-0.1) % Eos # (Auto) (0-0.5) x10^3/uL Immature Gran # (Auto) (0.00-0.03) x10^3u/L Absolute Lymphs (auto) (1.0-4.6) x10^3/uL Absolute Monos (auto) (0.0-1.3) x10^3/uL Absolute Nucleated RBC (0.00-0.01) x10^3u/L Lymphocytes % (24.0-44.0) % Monocytes % (0.0-12.0) % Eosinophils % (0.00-5.0) % Basophils % (0.0-0.4) % Absolute Granulocytes (1.4-6.9) x10^3/uL Basophils # (0-0.4) x10^3/uL ESR (0-20) mm/hr Sodium (137-145) mmol/L Potassium (3.5-5.1) mmol/L Chloride (98-107) mmol/L Carbon Dioxide (22-30) mmol/L Anion Gap (5-15) MEQ/L BUN (7-17) mg/dL Creatinine (0.52-1.04) mg/dL Estimated GFR ML/MIN Glucose (74-106) mg/dL Calcium (8.4-10.2) mg/dL Total Bilirubin (0.2-1.3) mg/dL AST (14-36) U/L ALT (0-35) U/L Alkaline Phosphatase (38-126) U/L Serum Total Protein (6.3-8.2) g/dL Albumin (3.5-5.0) g/dL Amylase (30-110) U/L Lipase (23-300) U/L Urine Color Yellow (Yellow) Urine Appearance Cloudy A (Clear) Urine pH 8.0 (4.6-8.0) Ur Specific [place] 1.020 (1.005-1.030) Urine Protein Negative (Negative) Urine Glucose (UA) Negative (Negative) mg/dL Urine Ketones Negative (Negative) Urine Blood Negative (Negative) Urine Nitrite Negative (Negative) Urine Bilirubin Negative (Negative) Urine Urobilinogen 0.2 (0.2) mg/dL Ur Leukocyte Esterase Negative (Negative) U Hyaline Cast (Auto) NONE SEEN (0-2) /LPF Urine Microscopic RBC 0-2 (0-5) /HPF Urine Microscopic WBC 0-2 (0-5) /HPF Ur Epithelial Cells Moderate A (None Seen) /HPF Urine Bacteria Rare A (None Seen) /HPF Urine Culture Reflexed NO (NO) - Progress Progress: improved, pain not gone completely, re-examined Progress Note: 04/28/23 07:58 This patient's medical issue is 1 of moderate complexity. The level of complexity in the workup performed is based on review of the patient's past medical history, review of the patient's medication list, review of the patient's drug allergy list, history present illness and physical findings on examination. This patient's workup includes placement of intravenous line, infusion of normal saline solution, infusion of Dilaudid and Zofran medication, CBC, CMP, amylase, lipase, CT scan of the abdomen pelvis. The patient also had a list of labs that she was supposed to have drawn that were ordered by her press shop supervisor, 1 was a stool calprotectin test. 1 was C-reactive protein and the other was ESR level. I added those to be drawn. 04/28/23 08:00 04/28/23 08:55 I interpreted the patient's laboratory data results. The patient has a very mildly elevated white blood cell count. No other laboratory data results show any acute or emergent medical issue. CT scan of the abdomen pelvis without contrast was interpreted by the radiologist and I reviewed the impression. I also discussed these findings with the patient. The patient has no free fluid or free air. The noncontrasted stomach and bowel loops appear nonobstructed. There is new fluid distended small and large bowel loops with fluid leveling. Ileus versus Crohn's disease. There is a new 5 to 6 mm proximal right ureteral calculus without evidence for obstructive uropathy. Counseled pt/family regarding: lab results, diagnosis, need for follow-up, rad results Medical Desision Making - Diagnostic Testing Diagnostic test were ordered, analyzed, and reviewed by me: Yes Radiological Interpretation: Reviewed by me, Teleradiologist Report - Risk of complications The pt has a mod risk of morbidity or mortality based on: Need for prescription drug management - Departure Departure Disposition: Home Clinical Impression: Right ureteral calculus, Crohn's disease (regional enteritis) Condition: Stable Critical Care Time: No Referrals: LINDA VELASQUEZ NP [Primary Care Provider] - Follow up/PCP as directed Additional Instructions: Drop your diet back to clear liquids. Advance your diet slowly. Avoid fatty greasy spicy foods. Take your steroids and other medication as prescribed. Call your primary care provider, press shop supervisor and urologist today to make a follow-up appointment in the next 3 to 5 days for further evaluation and management. Prescriptions: Prednisone 10 mg [Deltasone 10 mg] 10 mg PO TID #12 tablet
[2023-04-28 07:33] VITALS: TEMP 98.9
[2023-04-28] MEDS ORDERED: Zofran 4 MG/2 ML VIAL ONE (07:46)
[2023-04-28] MEDS ORDERED: Hydromorphone 1 mg/ml Injection ONE ×2 (07:46→09:51)
[2023-04-28] MEDS ORDERED: Sodium Chloride 0.9% 1000 ML 1,000 ML ONE (07:46)
[2023-04-28] MEDS: Zofran 4 MG/2 ML VIAL IV ONE (07:48)
[2023-04-28] MEDS: Sodium Chloride 0.9% 1000 ML 1,000 ML IV STA (07:49)
[2023-04-28] MEDS: Hydromorphone 1 mg/ml Injection IV ONE ×2 (07:49→09:55)
[2023-04-28 07:56] LABS: BASOPHIL % 0.4 % (0.0-0.4); Basophil (Absolute #) 0.04 x10^3/uL (0-0.4); Eosinophil (Absolute #) 0.11 x10^3/uL (0-0.5); Hematocrit 40.8 % (35-47); Hemoglobin 13.6 g/dL (12.0-16.0); IMMATURE GRAN # 0.04 x10^3u/L (0.00-0.03); IMMATURE GRAN % 0.4 % (0.00-0.4); Lymphocyte (Absolute #) 1.68 x10^3/uL (1.0-4.6); Lymphocytes % 15.2 % (24.0-44.0); Mean Corpuscular Hemoglobin 28.3 pg (26-32); Mean Corpuscular Hgb Concent. 33.3 g/dL (32-36); Mean Platelet Volume 8.7 fL (7.5-11.0); Monocyte (Absolute #) 0.56 x10^3/uL (0.0-1.3); Monocytes % 5.1 % (0.0-12.0); Neutrophil % 77.9 % (36.0-66.0); Platelet Count 274 x10^3/uL (150-450); Red Cell Distribution Width 12.4 % (11.5-14.0)
[2023-04-28 08:19] LABS: Appearance Cloudy (Clear); Bacteria Rare /HPF (None Seen); Bilirubin Negative (Negative); Blood Negative (Negative); Epithelial Cells Moderate /HPF (None Seen); Glucose, Urine Negative (Negative); Hyaline Casts NONE SEEN /LPF (0-2); Ketones Negative (Negative); Leukocyte Esterase Negative (Negative); Nitrite Negative (Negative); Protein,Urine Dip Negative (Negative); RBC 0-2 /HPF (0-5); Urobilinogen 0.2 mg/dL (0.2); WBC 0-2 /HPF (0-5)
[2023-04-28 08:22] LABS: ADD URINE CULTURE? NO (NO)
[2023-04-28 08:24] LABS: ALBUMIN 4.3 g/dL (3.5-5.0); ANION GAP 12.1 MEQ/L (5-15); BILIRUBIN,TOTAL 1.1 mg/dL (0.2-1.3); Creatinine 1 0.68 mg/dL (0.52-1.04); EST GLOMERULAR FILTRATION RATE 104.7 ML/MIN; Potassium 3.8 mmol/L (3.5-5.1); Total Protein 7.5 g/dL (6.3-8.2)
--- NOTE | 2023-04-28 08:40 | XRAY ---
Indication: Abdomen pain and diarrhea. History of Crohn's. Multiple contiguous axial images obtained through the abdomen and pelvis without contrast. Comparison: March 31, 2023 Lung bases demonstrates minimal dependent atelectasis. No infiltrate or effusion. Heart not enlarged. Noncontrasted stomach and bowel loops appear nonobstructed. There are now several fluid distended small and large bowel loops with fluid leveling, ileus versus Crohn's. Again appendectomy and cholecystectomy. No free fluid/air. Previous left ureteral stent catheter has been removed. There are again bilateral renal micro-calculi. New 5-6 mm proximal right ureteral calculus, approximately L3 level without hydronephrosis or perinephric fluid/stranding. Remaining liver, pancreas, spleen, adrenal glands, urinary bladder, uterus, and aorta are unremarkable for noncontrast exam. Osseous structures intact again with minimal degenerative changes throughout spine. Impression: 1. New fluid distended small and large bowel loops with fluid leveling, ileus versus Crohn's. 2. New 5-6 mm proximal right ureteral calculus without evidence for obstructive uropathy. 3. Again multiple bilateral renal micro-calculi.
[2023-04-28] MEDS ORDERED: Sterile H2O 10 ml IJ ONE (09:06)
[2023-04-28] MEDS ORDERED: solu-MEDROL ONE (09:06)
[2023-04-28] MEDS: solu-MEDROL 125 MG, Sterile H2O 10 ml 2 ML IV ONE (09:07)
[2023-04-28 10:02] VITALS: BP 114/65; PULSE 67; RESP 14; O2SAT 95
== END 2023-04-28 10:30 | disposition home or self-care (01) ==
LOC: ED 07:04
DX: N20.1 Calculus of ureter (principal); K50.90 Crohn's disease, unspecified, without complications; R10.13 Epigastric pain; R10.33 Periumbilical pain; Z79.52 Long term (current) use of systemic steroids; Z79.899 Other long term (current) drug therapy
CPT/HCPCS: 36000; 36415; 74176; 80053; 81001; 82150; 83690; 83993; 85025; 85652; 86140; 96374; 96375; 96376; 99284; J1170; J2405; J2930